=== PATIENT | male | born 1985 | race African-American/Black ===

== ENCOUNTER 2016-07-19 20:23 | Emergency (ER) | payer MEDICAID ==
[~2016-07-19] VITALS: Ht 188 cm; Wt 99.8 kg
[2016-07-19 20:26] VITALS: BP 120/78
[2016-07-19 22:12] LABS: Basophils # (auto) 0 uL; Basophils % (auto) 0.3 % (0.0-2.0); Eosinophils # (auto) 0.1 uL; Eosinophils % (auto) 0.6 % (0.0-7.0); Hemoglobin 13.6 g/dL (13.5-17.5); Lymphocytes # (auto) 1.5 uL; Lymphocytes % (auto) 15.6 % (10.0-50.0); Mean Corpuscular Hemoglobin 32.3 pg (28.0-32.0); Mean Corpuscular Hgb Conc. 33.1 g/dL (32.0-36.0); Mean Corpuscular Volume 97.7 fL (80.0-100.0); Mean Platelet Volume 8.5 fL (7.4-10.4); Monocytes # (auto) 0.7 uL; Neutrophils # (auto) 7.5 uL; Neutrophils % (auto) 76.5 % (37.0-80.0); Platelet Count (auto) 268 10^3/uL (140-450); Red Cell Distribution Width 13.3 % (11.6-16.0); White Blood Cell 9.8 10^3/uL (4.4-10.8)
[2016-07-19 22:29] LABS: Albumin 3.6 g/dL (3.4-5.0); Calcium 8.7 mg/dL (8.5-10.1)
[2016-07-19 22:32] LABS: Bilirubin, Total 0.4 mg/dL (0.2-1.0); Total Protein 7.6 g/dL (6.4-8.2)
== END 2016-07-20 01:15 | disposition left against medical advice (07) ==
LOC: EDBD 20:23 → ER 20:28
DX: M79.604 Pain in right leg (principal); Z53.21 Procedure and treatment not carried out due to patient leaving prior to being seen by health care provider; V23.4XXA Motorcycle driver injured in collision with car, pick-up truck or van in traffic accident, initial encounter; Y93.89 Activity, other specified; Y99.8 Other external cause status; Y92.89 Other specified places as the place of occurrence of the external cause
CPT/HCPCS: 36415; 80053; 83605; 85025

== ENCOUNTER 2017-07-12 14:13 | Emergency (ER) | payer MEDICAID ==
[~2017-07-12] VITALS: Ht 175.3 cm; Wt 57.0 kg
[2017-07-12] MEDS ORDERED: LIDOCAINE 2% (LOCAL ANESTH.) PF 5ml SDV ONE (15:51)
[2017-07-12 22:21] LABS: Urine Bacteria NONE SEEN /hpf (None Seen); Urine Blood TRACE /uL (Negative); Urine Mucus MANY (None Seen); Urine Specific Gravity 1.033 (1.001-1.035); Urine WBC 248 /hpf (0 - 3)
[2017-07-12 22:34] LABS: Amphetamine Screen, Urine POSITIVE (NEGATIVE); Barbiturate Scree,Urine NEGATIVE (NEGATIVE); Benzodiazephine Screen, Urine NEGATIVE (NEGATIVE); Cannabinoid Screen, Urine POSITIVE (NEGATIVE); Cocaine Screen, Urine NEGATIVE (NEGATIVE); Opiate Scree,Urine NEGATIVE (NEGATIVE); Phencyclidine Screen, Urine NEGATIVE (NEGATIVE)
[2017-07-13] MEDS ORDERED: HYDROcodone-ACET 10/325MG TAB PO ONE (00:45)
[2017-07-13] MEDS ORDERED: cefTRIAXone W LIDOCAINE 1 GM IM IM ONE (00:45)
[2017-07-13] MEDS ORDERED: cefTRIAXone 1GM/10ml IVPUSH 10 ML IV ONE (00:46)
[2017-07-13] MEDS ORDERED: LIDOCAINE 1% (LOCAL ANESTH.) PF 5ml SDV ONE (00:46)
[2017-07-13 01:03] VITALS: BP 125/70
== END 2017-07-13 02:19 | disposition home or self-care (01) ==
LOC: ER 14:13
DX: N45.1 Epididymitis (principal); K40.90 Unilateral inguinal hernia, without obstruction or gangrene, not specified as recurrent
CPT/HCPCS: 76870; 80307; 81001; 96372; 99285; J0696

== ENCOUNTER 2022-09-10 22:40 | Emergency (ER) | payer SELFPAY ==
[~2022-09-10] VITALS: Ht 175.3 cm; Wt 83.9 kg
[2022-09-10] MEDS ORDERED: TETRACAINE HCL 0.5% OPTH(EYE) SOLN 4ML RIGHTEYE ONE (23:00)
[2022-09-10] MEDS ORDERED: TETRACAINE HCL 0.5% OPTH(EYE) SOLN 4ML LEFTEYE ONE (23:00)
[2022-09-10 23:51] VITALS: BP 126/74
[2022-09-11] MEDS ORDERED: TETRACAINE HCL 0.5% OPTH(EYE) SOLN 4ML EACHEYE ONE
[2022-09-11] MEDS ORDERED: HYDROcodone-ACET 10/325MG TAB PO ONE
[2022-09-11] MEDS ORDERED: HYDR-4798 PO (00:10)
[2022-09-11] MEDS ORDERED: ERY05OO OP (00:17)
== END 2022-09-11 00:51 | disposition home or self-care (01) ==
LOC: ER 22:40
DX: H16.133 Photokeratitis, bilateral (principal); Z88.1 Allergy status to other antibiotic agents; F15.90 Other stimulant use, unspecified, uncomplicated

== ENCOUNTER 2024-05-01 01:03 | Emergency (ER) | payer MEDICAID ==
[~2024-05-01] VITALS: Ht 175.3 cm; Wt 87.2 kg
[~2024-05-01 01:03] MED LIST: ERY05OO OP; HYDR-4798 PO
[2024-05-01 01:46] LABS: Urine Bacteria None Seen /hpf (None Seen)
[2024-05-01 01:54] LABS: Urine Blood Negative /uL (Negative); Urine Clarity Clear (Clear); Urine Color Yellow (Yellow); Urine Mucus FEW (None Seen); Urine Protein, UAD TRACE (Negative); Urine Specific Gravity 1.035 (1.001-1.035); Urine Squamous Epithelial Cell None Seen /hpf (<5); Urine Urobilinogen Normal (Negative); Urine WBC 1 /hpf (0 - 3)
[2024-05-01] MEDS ORDERED: IBUP-1455 PO (02:38)
--- NOTE | 2024-05-01 02:38 | ED.PDOC ---
GI ASSESSMENT HPI Comments 38-year-old male complaining of lower abdominal pain and testicular pain. Patient states it started this evening. No trauma to the area. No fevers no chills. No nausea or vomiting. States he had some mild constipation but they started having diarrhea today. Nothing makes it better, touching the area makes it worse. Chief Complaint: Abdominal Pain Time Seen by MD: 01:18 Reviewed Notes: Nurses Notes Allergies: Coded Allergies: NO KNOWN ALLERGIES (Unverified , 07/15/10) Home Meds Active Scripts Erythromycin (Erythromycin) 5 Mg/Gm Oin, 5 MG OP QID for 5 Days, #1 OIN Prov:HAMILTON DANIELS [facility] 09/11/22 Hydrocodone-Acetaminophen (Hydrocodone Bitartrate/AC 10-325 mg) 1 Tab Tab, 1 TAB PO TID PRN for 5 Days, #15 TAB Prov:HAMILTON DANIELS [facility] 09/11/22 Information Source: Patient Mode of Arrival: Ambulatory Past Medical History PAST MEDICAL HISTORY: Denies Surgical History: Denies all surgeries Family History Family History: Unknown Social History Smoker: Non-Smoker Alcohol: Denies ETOH Use Drugs: Methamphetamine Lives In: Home Constitutional: denies: chills, diaphoresis, fatigue, fever, malaise, sweats, weakness, others EENTM: denies: blurred vision, double vision, ear bleeding, ear discharge, ear drainage, ear pain, ear ringing, eye pain, eye redness, hearing loss, mouth pain, mouth swelling, nasal discharge, nose bleeding, nose congestion, nose pain, photophobia, tearing, throat pain, throat swelling, voice changes, others Respiratory: denies: cough, hemoptysis, orthopnea, SOB at rest, shortness of breath, SOB with excertion, stridor, wheezing, others Cardiovascular: denies: chest pain, dizzy spells, diaphoresis, Dyspnea on exe rtion, edema, irregular heart beat, left arm pain, lightheadedness, palpitations, PND, syncope, others Gastrointestinal: reports: abdominal pain; denies: abdomen distended, blood streaked bowels, constipated, diarrhea, dysphagia, difficulty swallowing, hematemesis, melena, nausea, poor appetite, poor fluid intake, rectal bleeding, rectal pain, vomiting, others Genitourinary: reports: testicle pain, testicle swelling; denies: burning, dysuria, flank pain, frequency, hematuria, incontinence, penile discharge, penile sore, pain, urgency, others Neurological: denies: dizziness, fainting, headache, left sided numbness, left sided weakness, numbness, paresthesia, pre-existing deficit, right sided numbness, right sided weakness, seizure, speech problems, tingling, tremors, weakness, others Musculoskeletal: denies: back pain, gout, joint pain, joint swelling, muscle pa in, muscle stiffness, neck pain, others Integumetry: denies: bruises, change in color, change in hair/nails, dryness, laceration, lesions, lumps, rash, wounds, others Allergic/Immunocompromised: denies: Difficulty Healing, Frequent Infections, Hives, Itching, others Physical Exam General Appearance: No Apparent Distress, Normal HEENT: Normal ENT Inspection, Pharynx Normal, TMs Normal Neck: Full Range of Motion, Non-Tender, Normal, Normal Inspection Respiratory: Chest Non-Tender, Lungs Clear, No Accessory Muscle Use, No Respiratory Distress, Normal Breath Sounds Cardiovascular: No Edema, No JVD, No Murmur, No Gallop, Normal Peripheral Pulses, Regular Rate/Rhythm Breast Exam: Deferred Gastrointestinal: No Organomegaly, Non Tender, No Pulsatile Mass, Normal Bowel Sounds, Soft Genitalia: Testicle (Normal parents, tender to palpation over the inguinal regions bilaterally) Pelvic: Deferred Rectal: Deferred Extremities: No calf tenderness, Normal capillary refill, Normal inspection, Normal range of motion, Non-tender, No pedal edema Musculoskeletal : Apperance: Normal Neurologic: Alert, label drier II-XII nml as Tested, No Motor Deficits, Normal Affect, Normal Mood, No Sensory Deficits Cerebellar Function: Normal Reflexes: Normal Skin: Dry, Normal Color, Warm Lymphatic: No Adenopathy Was a procedure done? Was a procedure done?: No GI differential Dx Differential Diagnosis: Other (Testicular torsion, hydrocele) X-Ray, Labs, Meds, VS Vital Signs Date Time Temp Pulse Resp B/P (MAP) Pulse Ox O2 Delivery O2 Flow Rate FiO2 05/01/24 01:12 97.8 98 14 105/73 (84) 97 Lab Test 05/01/24 01:15 Range/Units Urine Color Yellow Yellow Urine Clarity Clear Clear Urine pH 5.0 5.0-9.0 Urine Specific [place] 1.035 1.001-1.035 Urine Protein Trace H Negative Urine Ketones Negative Negative Urine Blood Negative Negative /uL Urine Nitrite Negative Negative Urine Bilirubin Negative Negative Urine Urobilinogen Normal Negative mg/dL Urine Leukocyte Esterase Negative Negative /uL Urine RBC 1 0 - 3 /hpf Urine WBC 1 0 - 3 /hpf Urine Squamous Epithelial Cells None seen <5 /hpf Urine Bacteria None seen None Seen /hpf Urine Mucus Few None Seen Urine Glucose Normal Normal mg/dL X-Ray, Labs, Meds, VS Comment Imaging: X-rays and CT scans were reviewed and interpreted by this provider, imaging shows no fractures and no pathological disease. Pending radiology review. Laboratory: Labs reviewed and interpreted by this provider. No significant abnormalities noted. Patient has prior medical visits reviewed. Med reconciliation performed Vital signs reviewed Time of 1ST Reevaluation: 02:38 Reevaluation 1ST: Improved Patient Education/Counseling: Diagnosis, Treatment, Need For Follow Up (Patient advised to follow-up in the emergency room in the next 24 to 48 hours if symptoms do not improve. Advised follow-up with PCP in the next 3 to 5 days. Patient verbalized understanding. ) Family Education/Counseling: Diagnosis Departure 1 Departure Time of Disposition: 02:36 Impression: Primary Impression: Hydrocele Qualified Codes: N43.3 - Hydrocele, unspecified Disposition: 01 HOME / SELF CARE / HOMELESS Condition: Fair e-Prescriptions Ibuprofen Micronized (Ibuprofen) 800 Mg Tab 800 MG PO TID PRN, #40 TAB Prov: MELVIN MENDOZA 05/01/24 Discharged With: Self Critical Care Note Critical Care Time?: No Stability Stability form required: No Heart Score Heart Score: Heart Score Response (Comments) Value History N/A 0 EKG N/A 0 Age N/A 0 Risk Factors N/A 0 Troponin N/A 0 Total 0 MELVIN MENDOZA May 01, 2024 02:38
--- NOTE | 2024-05-01 03:40 | DVH ---
Examination: TESUS CLINICAL INDICATION: testicular pain. COMPARISON: None. TECHNIQUE: Duplex and color-flow imaging as well as real-time mcbride-scale imaging of the scrotum and testicles was performed. FINDINGS: Right Scrotum:Testis: Measures 5.1 x 2.8 x 3.8 cm (volume: 28.48 mL). Epididymis: Measures 1.53 cm.Hydrocele: Minimal right hydrocoele. Left Scrotum:Testis: Measures 5.5 x 2.5 x 4.1 cm (volume: 29.28 mL). Epididymis: Measures 1.42 cm. Hydrocele: Not seen. Both testes show normal and homogeneous echotexture. Normal vascularity in the bilateral testicles, without any discrete focal lesion. Mildly heterogeneous appearance of the bilateral epididymides, without increased vascularity. No calcification noted. No evidence of varicocele. The spermatic cord on both sides appears normal. IMPRESSION: 1. Normal-sized bilateral testicles with homogeneous echotexture and normal vascularity. 2. Mildly heterogeneous bilateral epididymides with normal vascularity, likely nonspecific. 3. Minimal right hydrocoele. Electronically Signed 05/01/2024 03:39 Bill Cullen
[2024-05-01] MEDS: MORPHINE SULFATE 4 MG/ML SYR/VIAL IM ONE (04:15)
[2024-05-01] MEDS: SODIUM CHLORIDE 0.9% 1,000 ML IV ONE (04:17)
[2024-05-01 04:22] VITALS: TEMP 98.2; O2SAT 98
[2024-05-01] MEDS: PANTOPRAZOLE 40 MG/10 ML VIAL INJ IV ONE (04:25)
[2024-05-01] MEDS: ONDANSETRON HCL 4 MG/2 ML VIAL IV ONE (04:26)
[2024-05-01 04:34] LABS: Basophils # (auto) 0 10 ^3/uL (0-0.2); Basophils % (auto) 0.1 % (0.0-2.0); Eosinophils # (auto) 0.1 10 ^3/uL (0-0.8); Eosinophils % (auto) 0.6 % (0.0-7.0); Hematocrit 51.3 % (41.0-53.0); Hemoglobin 16.7 g/dL (13.5-17.5); Lymphocytes # (auto) 1.3 10 ^3/uL (0.4-5.4); Lymphocytes % (auto) 12.9 % (10.0-50.0); Mean Corpuscular Hemoglobin 32.7 pg (28.0-32.0); Mean Corpuscular Hgb Conc. 32.6 g/dL (32.0-36.0); Mean Corpuscular Volume 100.2 fL (80.0-100.0); Monocytes # (auto) 0.9 10 ^3/uL (0-1.3); Neutrophils # (auto) 7.6 10 ^3/uL (1.6-8.6); Neutrophils % (auto) 77.4 % (37.0-80.0); Nucleated Red Blood Cells % 0.1 %; Platelet Count (auto) 362 10^3/uL (140-450); Red Blood Cells 5.12 10^6/uL (4.5-5.90); Red Cell Distribution Width 13.1 % (11.8-14.3); White Blood Cell 9.9 10^3/uL (4.4-10.8)
[2024-05-01 04:44] LABS: Alanine Aminotransferase 15 U/L (7-40); Albumin 4.7 g/dL (3.2-4.8); Alkaline Phosphatase 67 U/L (46-116); Anion Gap 6 (5-15); Aspartate Aminotransferase 16 U/L (13-40); BUN/Creatinine Ratio 11.9 (10.0-20.0); Bilirubin, Total 0.5 mg/dL (0.2-1.0); Blood Urea Nitrogen 16 mg/dL (9-23); Carbon Dioxide 28 mmol/L (20-31); Chloride 105 mmol/L (98-107); Glucose 98 mg/dL (74-106); Lipase 41 U/L (12-53); Magnesium 2.1 mg/dL (1.6-2.6); Potassium 4.1 mmol/L (3.5-5.1); Sodium 139 mmol/L (136-145)
[2024-05-01 04:53] LABS: Calcium 10.4 mg/dL (8.7-10.4); Total Protein 8.4 g/dL (5.7-8.2)
[2024-05-01 05:19] VITALS: BP 125/77; PULSE 92; RESP 18
[2024-05-01] MEDS ORDERED: ZOFR4T PO (05:23)
== END 2024-05-02 09:50 | disposition home or self-care (01) ==
LOC: ER 01:03
DX: N43.3 Hydrocele, unspecified (principal); F15.90 Other stimulant use, unspecified, uncomplicated; Z79.899 Other long term (current) drug therapy
CPT/HCPCS: 36415; 76870; 80053; 81001; 83690; 83735; 85025; 96361; 96372; 96374; 96375; 99285; J2270; J2405; J2470; J7030